=== PATIENT | female | born 1940 | race Caucasian/White ===

== ENCOUNTER 2019-03-22 21:18 | Inpatient (IN) ==
[2019-03-23 00:23] LABS: BASO# 0.01 X1000 (0.0-0.2); BASO% 0.2 % (0.0-0.8); EOS# 0.05 X1000 (0.0-0.7); EOS% 0.8 % (0.0-10.0); HEMOGLOBIN 10.9 g/dL (12.0-16.0); LYMPH# 1.62 X1000 (1.2-3.4); LYMPH% 25.9 % (20.5-51.1); MCH 33.4 PG (27-31); MCHC 34.1 g/dL (33-37); MCV 98.2 FL (81-99); MONO# 0.78 X1000 (0.11-0.59); MONO% 12.5 % (1.7-9.3); MPV 9.7 FL (7.4-10.4); NEUT% 60.6 % (42.2-75.2); PLT 164 X1000 (130-400); RBC 3.26 XMIL (4.2-5.4); RDW 19.6 % (11.5-14.5); WBC 6.26 X1000 (4.8-10.8)
[2019-03-23 00:33] LABS: INR 1.03; PROTIME 14.4 Seconds (11.0-16.0)
[2019-03-23 00:34] LABS: PTT 25.2 Seconds (22.3-41.8)
[2019-03-23 01:15] LABS: ALB/GLOB RATIO 1.7; CREATININE 1.3 mg/dL (0.5-0.9); POTASSIUM 4.4 mmol/L (3.5-5.1); TOTAL BILIRUBIN 2.08 mg/dL (0.20-1.00); TOTAL PROTEIN 6.3 g/dL (6.3-8.3)
--- NOTE | 2019-03-23 01:55 | PROVIDER DOCUMENTATION ---
This chart was entered by Aliya Castro Scribe, acting as scribe for Katiana Moya MD. HPI-Neurological Disorder - General Chief Complaint: Weakness Stated Complaint: STROKE SYM Time Seen by Provider: 03/22/19 22:16 Source: patient Allergies/Adverse Reactions: Patient Allergies Allergy/AdvReac Type Severity Reaction Status Date / Time No Known Allergies Allergy Verified 04/03/16 15:18 Home Medications: Home Medication List Medication Instructions Recorded Confirmed Last Taken Type Rhemicade Every 6 Weeks 1 dose IV ORDERED 06/16/13 06/10/15 04/04/14 History Levothyroxine [Synthroid] 125 microgm PO DAILY 11/20/13 06/10/15 1 Day Ago Hi story ~06/09/15 Allopurinol [Zyloprim] 300 mg PO DAILY 06/10/15 06/10/15 1 Day Ago History ~06/09/15 Lisinopril 5 mg PO DAILY 06/10/15 06/10/15 1 Day Ago History ~06/09/15 Metoprolol/Hydrochlorothiazide 1 each PO DAILY 06/10/15 06/10/15 1 Day Ago History [Metoprolol-Hctz 100-25 mg Tab] ~06/09/15 Clopidogrel [Plavix] 75 mg PO DAILY #30 tablet 06/12/15 Unknown Rx Dexlansoprazole [Dexilant] 60 mg PO DAILY #30 capsule 06/12/15 Unknown Rx Cyclobenzaprine [Flexeril] 10 mg PO TID #20 tablet 04/03/16 Unknown Rx Sulfamethoxazole/Trimethoprim 1 each PO BID #10 tablet 04/03/16 Unknown Rx [Bactrim Ds Tablet] Celecoxib [Celebrex] 200 mg PO DAILY #30 capsule 06/19/18 Unknown Rx Methocarbamol [Robaxin-750] 750 mg PO BID PRN #60 tablet 06/19/18 Unknown Rx Cephalexin [Keflex] 500 mg PO BID #14 cap 06/28/18 Unknown Rx Hydrocodone/APAP 5 mg/325 mg 1 ea PO Q6H PRN PRN #10 tab 06/28/18 Unknown Rx [[place]-5] - History of Present Illness-Neuro Nature of Presenting Problem: 79 yof c/o weakness in left leg and dizziness starting 1530 today. pt sts she was going to dr office and left leg "not moving like its supposed to" and "feels heavy." pt has hx of mini stroke, anemic and kidney problems. denies fever, chills and nvd. Review of Systems - Adult - REVIEW OF SYSTEMS - ADULT Constitutional: reports: no symptoms reported. denies: chills, fever Eyes: reports: no symptoms reported Ears, Nose, Mouth & Throat: reports: no symptoms reported Cardiovascular: reports: no symptoms reported Respiratory: reports: no symptoms reported Gastrointestinal: reports: no symptoms reported Genitourinary: reports: no symptoms reported Musculoskeletal: reports: see HPI, muscle weakness (left leg). denies: bone pain, back pain, neck pain Integumentary: reports: no symptoms reported Neurological: reports: see HPI, dizziness/vertigo. denies: headache/migraines, slurred speech, syncope Psychiatric: reports: no symptoms reported Endocrine: reports: no symptoms reported Hematologic/Lymphatic: reports: no symptoms reported Allergic/Immunologic: reports: no symptoms reported All Other Systems: Reviewed and Negative Past History - Adult - PAST MEDICAL HISTORY-ADULT Review of Records: reports: Old Records Reviewed, Nursing Assessment Review, Medications Reviewed, Social history reviewed & non-contributory. Major Childhood Illnesses: reports: denies history Cardiovascular: reports: HTN, other (cardiomegaly) Respiratory: reports: denies history Gastrointestinal: reports: denies history Obstetrical/Gynecological: reports: denies history Genitourinary: reports: cancer, kidney disease Musculoskeletal: reports: arthritis (psoriatic) Neurological: reports: denies history Endocrine/Immune: reports: anemia, thyroid disorder (thyroid disease) Other Conditions: reports: other cancer (kidney cancer), other (vitamin deficiency) - PRIOR SURGERIES/PROCEDURES Surgical/Procedure History: reports: cholecystectomy, hysterectomy, other (thyroidectomy) - IMMUNIZATION STATUS Childhood Immunizations: See Nurse Assessment Flu Vaccine: See Nurse Assessment - FAMILY HISTORY Family History: reviewed, not pertinent - SOCIAL HISTORY Smoking: non-smoker Substance Use: alcohol Alcohol Use Frequency: every day Number of drinks per typical drinking period:: 2 drinks Physical Exam- Neurological - Physical Exam-Neuro Initial Vital Signs Reviewed: Yes General Appearance: appears well, alert, no apparent distress Eye Exam: bilateral eye: normal inspection, PERRL, EOMI HENMT: normocephalic/atraumatic, moist mucous membranes, normal ENT inspection Head Injury: no evidence of injury Neck: non-tender, full range of motion, supple, normal inspection Respiratory: chest non-tender, lungs clear, normal breath sounds Cardiovascular: normal peripheral pulses, regular rate, rhythm Abdominal Exam: normal bowel sounds, non tender, soft Lymphatic: no adenopathy Peripheral Pulses: radial (R): 2+, radial (L): 2+ Extremity: normal range of motion, non-tender, normal inspection cps team lead Exam: normal hearing, normal speech, PERRL. negative: facial droop, facial paresthesias, facial weakness Motor/Sensory: no motor deficit, no sensory deficit, no pronator drift Neurologic: cps team lead II-XII nml as tested, grossly normal, no motor/sensory deficits Integumentary: normal color, normal turgor, warm/dry Psych/Mental Status: normal mood/affect, normal thought content, normal thought process, oriented x 3 - Glascow Coma Scale Best Eye Response: (4) open spontaneously Best Verbal Response: (5) oriented Best Motor Response: (6) obeys commands Total Glascow Score: 15 Progress - PLAN OF CARE/RESULTS Progress/Plan/Lab Results: Vital Signs - 8 hr 03/22/19 21:25 Temperature 98.4 F Pulse Rate 73 Respiratory Rate 20 Blood Pressure 185/79 O2 Sat by Pulse Oximetry 100 Laboratory Results - last 24 hr 03/23/19 03/23/19 03/23/19 00:16 00:16 00:16 WBC 6.26 RBC 3.26 L Hgb 10.9 L Hct 32.0 L MCV 98.2 MCH 33.4 H MCHC 34.1 RDW Std Deviation 19.6 H Plt Count 164 MPV 9.7 Immature Gran % (Auto) 0.0 Neut % (Auto) 60.6 Lymph % (Auto) 25.9 [place] % (Auto) 12.5 H Eos % (Auto) 0.8 Baso % (Auto) 0.2 Immature Gran # (Auto) 0.00 Neut # (Auto) 3.80 Lymph # (Auto) 1.62 [place] # (Auto) 0.78 H Eos # (Auto) 0.05 Baso # (Auto) 0.01 PT 14.4 INR 1.03 PTT (Actin FS) 25.2 Sodium 139 Potassium 4.4 Chloride 104 Carbon Dioxide 25 Anion Gap 10 BUN 24 H Creatinine 1.3 H Estimated GFR/1.73 m2 40 BUN/Creatinine Ratio 18 Glucose 115 H Calculated Osmolality 283 Calcium 10.0 Total Bilirubin 2.08 H AST 28 ALT 23 Alkaline Phosphatase 61 Creatine Kinase 23 L Troponin T Total Protein 6.3 Albumin 4.0 Globulin 2.3 Albumin/Globulin Ratio 1.7 03/23/19 00:16 WBC RBC Hgb Hct MCV MCH MCHC RDW Std Deviation Plt Count MPV Immature Gran % (Auto) Neut % (Auto) Lymph % (Auto) [place] % (Auto) Eos % (Auto) Baso % (Auto) Immature Gran # (Auto) Neut # (Auto) Lymph # (Auto) [place] # (Auto) Eos # (Auto) Baso # (Auto) PT INR PTT (Actin FS) Sodium Potassium Chloride Carbon Dioxide Anion Gap BUN Creatinine Estimated GFR/1.73 m2 BUN/Creatinine Ratio Glucose Calculated Osmolality Calcium Total Bilirubin AST ALT Alkaline Phosphatase Creatine Kinase Troponin T < 0.010 Total Protein Albumin Globulin Albumin/Globulin Ratio Orders Category Date Time Status Cardiac Monitoring DIRECTED Care 03/22/19 22:17 Active Finger Stick Blood Sugar (ED) DIRECTED Care 03/22/19 22:17 Active Oxygen Therapy- ED Nursing DIRECTED Care 03/22/19 22:17 Active Saline Loc NOW Care 03/22/19 22:[address] HEAD W/O CONTRAST [CT] Stat Exams 03/22/19 22:16 Taken cxr [CHEST-2 VIEWS] [RAD] Stat Exams 03/22/19 22:17 Taken CBC WITH ELECTRONIC DIFF [HEME] Stat Lab 03/23/19 00:16 Completed CK PROFILE [SP CHEM] Stat Lab 03/23/19 00:16 Completed COMPREHENSIVE METABOLIC PANEL [CHEM] Stat Lab 03/23/19 00:16 Completed PROTIME WITH INR [COAG] Stat Lab 03/23/19 00:16 Completed PTT [COAG] Stat Lab 03/23/19 00:16 Completed TROPONIN T Stat Lab 03/23/19 00:16 Completed Altered Mental Status Stat Oth 03/22/19 22:17 Ordered EKG [EKG] Stat Ther 03/22/19 22:17 Ordered Result Diagrams: 03/23/19 00:16 03/23/19 00:16 - EKG 1 Time of EKG reading by physician:: 21:24 EKG Read and Signed by:: Katiana Moya EKG Interpretation (*Must complete 3 of following elements*): Abnormal (borderline) Rate: 67 Rhythm: SR w/ short ID w/PAC [place]: normal QRS: normal ID Interval: shortened ST Wave: normal - CT/MRI 1 CT Study: Head (Impression: Negative for acute intracranial abnormality. Stable intracranial exam. 2. Sinusitis.) Impression: Normal - CONSULTS/PCP/HOSPITALIST Notification #1 *Consult/PCP/Hospitalist*: dr. Carlos Time Discussed: :53 Consult Disposition: Admit Departure - Departure Date of Disposition Decision: 03/23/19 Time of Disposition Decision: :53 DIAGNOSIS: Essential hypertension, TIA (transient ischemic attack), RHEA (acute kidney injury) Disposition: ADMITTED INPATIENT 09 Certified Medical Emergency: Emergent Condition: Stable Referrals and Follow-Ups: Yumkio Norman MD [Primary Care Provider] - - Critical Care Note This patient required my direct & personal management of CC.: No Attestation - Physician/ NEYMAR Attestation Patient care was provided by Advanced Practice Provider:: No The physician spent face to face time with patient:: Yes Advanced Practice Provider documentation review:: Supervising physician onsite and consulted in the evaluation and care of this patient. The physician did have a face to face encounter with the patient. - NIH Stroke Scale NIH Type: Initial Evaluation Level of Consciousness: 0-Alert LOC Questions (ask month and age): 0-Answers Both Correctly LOC Commands (ask to open & close eyes;make a fist, let go): 0-Obeys Both Correctly Best Gaze (horizontal eye movement): 0-Normal Visual (use finger movement, counting or visual threat): 0-No Visual Loss Facial Palsy (show teeth or raise eyebrows & close eyes tght: 0-Symmetrical Movement Motor Function-left arm: 0-Normal Motor Function-right arm: 0-Normal Motor Function-left le-Some Effort Against [place] Motor Function-right le-Normal Limb Ataxia([id number], or heel to chavez): 1-Present in one limb Sensory(pin prick to face,arms,trunk,legs-compare side/side): 0-No Ataxia Best Language(name item/read sentence.Ex-Down to Earth): 0-No Aphasia Dysarthria(Pt read words or say words Ex.Mama,Tip-Top,Thanks: 0-Normal Articula tion Extinction and Inattention: 0-Normal Modified [place] Score Criteria: 0-no symptoms This chart was documented by the indicated scribe, (Aliya Castro, Dalia) and accurately reflects the services I performed and decisions made by me, Katiana Moya MD, as attested by the provider's signature.
--- NOTE | 2019-03-23 06:06 | HISTORY AND PHYSICAL ---
PRIMARY CARE PHYSICIAN: Dr. Parag Norman CHIEF COMPLAINT: Left leg weakness. HISTORY OF PRESENTING ILLNESS: A 71-year-old female with a history of hypertension, hypothyroidism, psoriatic arthritis, chronic anemia and TIA who had presented to emergency department with 1-day history of having left leg weakness. The patient states that she was not able to control her leg and had felt weak. She was evaluated in the emergency department, and due to suspicion of possible TIA she will need admission for further management. At the time of my examination, patient denied any headache, fever, chills, chest pain, shortness of breath or any weight changes, but complained of left leg weakness and dizziness. PAST MEDICAL HISTORY: Includes hypertension, hypothyroidism, gout, psoriatic arthritis, chronic anemia and TIA. PAST SURGICAL HISTORY: Hysterectomy, thyroidectomy and cholecystectomy. ALLERGIES: No known drug allergies. CURRENT MEDICATIONS: Include allopurinol 300 mg p.o. daily, Celebrex 200 mg p.o. daily, Plavix 75 mg p.o. daily, Flexeril 10 mg p.o. t.i.d., Dexilant 60 mg p.o. daily, [place] 5 1 p.o. q.6 hours, levothyroxine 125 mcg every day, lisinopril 5 mg p.o. daily, Robaxin 750 mg p.o. b.i.d., metoprolol HCT 100/25 1 p.o. daily, and Remicade every 6 weeks. SOCIAL HISTORY: No history of smoking. Admits to drinking wine every night. Denies any illicit drug use. FAMILY HISTORY: No history of coronary disease. REVIEW OF SYSTEMS: Fourteen point review of system as listed in HPI. Other systems negative. PHYSICAL EXAMINATION: GENERAL: Cooperative and friendly female. She is resting more comfortably now. VITAL SIGNS: Temperature 98.4 degrees, pulse 72, respirations 20, and blood pressure 185/79. HEENT: Atraumatic, normocephalic. Extraocular movements intact. PERRLA. NECK: No masses. CHEST: Clear to auscultation. CARDIOVASCULAR: Regular rate and rhythm. ABDOMEN: Soft. Positive bowel sounds. EXTREMITIES: There is some disfigurement on her hands. There is no edema. : No bladder distention. NEUROLOGIC: She is awake, alert, and oriented x3. Strength 5/5 in all extremities. Speech is intact. : No bladder distention. SKIN: Warm. LABORATORIES AND STUDIES: WBC 6.26, hemoglobin 10.9, hematocrit 32, and platelets 164,000. Sodium 139, potassium 4.4, chloride 104, CO2 25, BUN is 24, creatinine is 1.3, and glucose is 115. CT of the head was read as negative by ER physician. ASSESSMENT: This is a 79-year-old female with a history of hypertension, TIA, hypothyroidism, psoriatic arthritis, who had presented to emergency department with 1-day history of having left leg weakness and dizziness. She was evaluated in the emergency department, and due to her presenting symptoms, she will require admission for further management. 1. TIA. We will need to rule out cerebrovascular accident. 2. Hypertension. 3. Hypothyroidism. 4. Psoriatic arthritis. PLAN: 1. We will admit patient to medical floor with telemetry. 2. Continue with stroke workup. 3. We will schedule a carotid duplex, echocardiogram, and MRI of the brain. 4. We will consult Neurology. 5. We will monitor blood pressure and allow permissive hypotension. 6. We will restart her home medications. 7. We will put patient on DVT prophylaxis and SCD's. 8. We will continue to follow and reassess, and make further recommendations based on patient's clinical course. cc: Ambrosio Carlos MD
[2019-03-23 06:30] LABS: URINE SOURCE CLEAN CATCH
--- NOTE | 2019-03-23 06:32 | Diag Imaging Result Doc PS360 ---
CHEST-2 VIEWS - 03/22/2019 INDICATION: pna COMPARISON: 06/28/2018 FINDINGS: The lungs are normally expanded and clear. Heart size and mediastinal contours are normal. No pneumothorax or pleural effusion. IMPRESSION: Negative exam. Electronically signed by Yogi Jacobs 03/23/2019 6:30 AM
[2019-03-23 06:47] LABS: BILIRUBIN URINE NEGATIVE (NEGATIVE); BLOOD URINE NEGATIVE (NEGATIVE); COLOR YELLOW; GLUCOSE URINE NEGATIVE (NEGATIVE); KETONE URINE NEGATIVE (NEGATIVE); LEUKOCYTES URINE MODERATE (NEGATIVE); NITRITE URINE NEGATIVE (NEGATIVE); PROTEIN URINE NEGATIVE (NEGATIVE); SP GRAVITY URINE 1.005; TURBIDITY URINE CLEAR (CLEAR); UR EPITHELIAL CELLS <10 /HPF (<10); URINE BACTERIA 4+ /HPF; URINE RBC <10 /HPF (<10); UROBILINOGEN URINE NORMAL (NORMAL)
--- NOTE | 2019-03-23 07:18 | Diag Imaging Result Doc PS360 ---
EXAM: CT HEAD W/O CONTRAST INDICATION: weakness TECHNIQUE: This exam was performed using automated exposure control, adjustment of mA or kV according to patient size, and/or use of iterative reconstruction technique. COMPARISON: 06/28/2018 FINDINGS: There is suggestion of minimal white matter microangiopathy, stable. There is no definite acute infarct given the limited sensitivity of CT versus MRI. There is no discrete intracranial mass, mass effect, or intracranial hemorrhage. The surrounding soft tissues and bony structures are essentially unremarkable. IMPRESSION: Stable minimal chronic white matter changes. No evidence of acute intracranial pathology. Electronically signed by Justino Castro 03/23/2019 7:15 AM
--- NOTE | 2019-03-23 07:28 | EKG Report ---
Test Performed on : 03/22/2019 9:24:11 PM Test Reason : weakness Blood Pressure : / mmHG Vent. Rate : 067 BPM Atrial Rate : 067 BPM P-R Int : 110 ms QRS Dur : 080 ms QT Int : 408 ms P-R-T Axes : 036 -01 062 degrees QTc Int : 431 ms Sinus rhythm. with short CO with premature atrial complexes. Low voltage QRS Borderline ECG When compared with ECG of 10-JUN-2015 11:07, premature atrial complexes. are now present Unconfirmed Result
[2019-03-23] MEDS: ASPIRIN PO SCH ×2 (08:18→09:54)
[2019-03-23] MEDS ORDERED: METHOTREXATE PO SCH (09:00)
[2019-03-23] MEDS: ZYLOPRIM PO SCH (09:54)
[2019-03-23] MEDS: FOLIC ACID PO SCH (09:55)
[2019-03-23] MEDS: VITAMIN D PO SCH ×2 (10:08)
--- NOTE | 2019-03-23 10:08 | Diag Imaging Result Doc PS360 ---
MRI BRAIN W/WO CONTRAST - 03/23/2019 INDICATION: TIA COMPARISON: Head CT 03/22/2019 FINDINGS: There is no area of restricted diffusion. There is no abnormal contrast enhancement. There is a small focal area of encephalomalacia at the right cerebellar hemisphere that is more extensive than the MRI from 06/21/2015. Otherwise, no intracranial mass or hemorrhage. The ventricles and sulci are otherwise normal. There is some mild patchy cerebral white matter hyperintensity stable from prior. This is nonspecific but most compatible with chronic microvascular disease. IMPRESSION: Chronic microvascular disease of the cerebral hemispheres. Small, old infarction in the right cerebellar hemisphere. No acute process. Electronically signed by Yogi Jacobs 03/23/2019 10:06 AM
--- NOTE | 2019-03-23 13:17 | PROGRESS NOTE ---
DATE: 03/23/2019 SUBJECTIVE: Mrs. Mosquera was admitted by Dr. Carlos with a suspected TIA. She continues with persistent left lower extremity issues. When attempting to ambulate, she drags the left leg. She requires assistance getting in and out of bed. Her initial CT scan of the brain demonstrated chronic white matter changes. An ultrasound of the carotids demonstrated no hemodynamically significant lesions. A followup MRI was negative. She remains in normal sinus rhythm. OBJECTIVE: Temperature 98.2 degrees, pulse 64, respiratory rate 16, and BP 154/64. CV: Regular rate and rhythm. Lungs: Clear. Abdomen: Soft, nontender with active bowel sounds. Neurologic: She is alert and oriented to name, place, and time. Cranial nerves 2-12 intact grossly. She has normal tone and strength in the upper extremities and right lower extremity. Strength is 4/5 in the left lower extremity. She has an antalgic gait. 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 I really believe that she has most likely had an embolic CVA. We will continue telemetry to rule out arrhythmias. A carotid ultrasound demonstrated no hemodynamically significant lesions. An echo is pending. She is requiring assistance with transfers. When I assisted with ambulation today, her gait was unstable and ataxic. I do believe that she would benefit from physical therapy. Her difficulties with ambulation are going to require physical therapy. She is certainly not independent enough at this time to safely discharge her home. I believe that inpatient status is indicated as I anticipate she will be in the hospital for at least 2 midnights. I am going to begin Plavix 75 mg daily. We talked about short-term rehab. Because of responsibilities at home, she cannot be away from the house as she is her 's primary caregiver. We will arrange for home health with physical therapy. I will write a prescription for a walker with wheels and a seat. cc: Cat Norman MD
[2019-03-23] MEDS: PLAVIX PO SCH (13:40)
--- NOTE | 2019-03-23 16:04 | CONSULTATION ---
DATE OF CONSULTATION: 03/23/2019 NEUROLOGY CONSULTATION: Ms. Mosquera is 79 years old and she had relatively abrupt onset of dizziness and gait difficulty yesterday. She reports riding in a car with her to his doctor visit. She had a little bit of headache in the car ride. As she got out of the car, she noticed dizziness and unsteadiness. When she got to the elevator, her sense of imbalance was increased, and she reports that has not occurred before. She got to the doctor's office and sat in the waiting room while was taken back for his visit. She attempted to stand but had a sense she could not stand up. Later, she was able to stand unassisted, but noted she was dragging her left leg more than the right. She uses a rolling walker at all times in recent years because of degenerative joint problems in the legs. She believes she was more dependent on the walker during this time yesterday. She did not notice vision disturbance. Headache persisted and eventually improved. There was no trouble with chewing or swallowing. Speech was not affected. Memory was clear, and there was no altered awareness or altered consciousness. She did not notice focal weakness or clumsiness in the arms. She was admitted and watched overnight. She believes she is a little bit better today. She reports she has not had an episode like this before. She is not aware of any definite previous stroke. Past history is remarkable for hypertension, hypothyroidism, psoriatic arthritis treated with methotrexate. Vital signs recorded here show she has been afebrile. Heart rate has ranged 60s to 70s. Initial systolic blood pressure 180s, came down to 140s to 150s range. Lab showed BUN 24, creatinine 1.3, both slightly above her baseline. Blood sugar was 115. Chemistry was otherwise unremarkable. Noncontrast CT showed usual white matter changes. Brain MRI today done with and without contrast shows chronic white matter changes bilaterally with area of encephalomalacia in the right cerebellar hemisphere, reported to be more extensive than noted on 06/21/2015 MRI. There was no restricted diffusion. On exam, Ms. Mosquera is awake, alert, attentive, appropriate, oriented, cheerful. Speech is not dysarthric. Language function is intact on bedside testing. Recent and remote memory are good. Head and neck are unremarkable. Visual alvarez are full, tested by confrontational finger counting. Extraocular movements are full. Facial motility is little bit diminished bilaterally, but symmetric. Gag is intact. Tongue is midline. She can hear. Shoulder shrug is good bilaterally. Strength is normal in the arms and legs. She did well on [id number] testing bilaterally. She did well on [id number] testing except as limited by the joint problems. There was no evidence of cerebellar deficit. Proprioception is good in the fingers and at the left great toe MTP joint. At the right great toe MTP joint, her responses were a little bit more equivocal, but still all correct. She reports good pinprick appreciation over the limbs. Reflexes are trace at the knees and 1+ symmetrically at the wrists. I did not test her gait. IMPRESSION: Reported abrupt onset of dizziness with unsteady gait and headache, possible focal weakness or clumsiness involving the left leg, incomplete recovery over the last 24 hours. She has risk factors for cerebrovascular ischemic problems, and that may be the most likely explanation, although MRI does not show definite acute infarction. Reported onset with dizziness raises possibility that she had vertigo due to labyrinthopathy and she may not have had an acute central nervous system event. I encouraged her to be attentive to her physical therapy here, to make sure she takes her medicines correctly after discharge, to stay well hydrated, to sit down if she is lightheaded, to be careful with gait and activities. If vertigo is apparent and recurrent, meclizine and ENT evaluation could be considered. I do not have any suggestion for new neurologic workup beyond what she has had completed this admission. I would continue daily aspirin, clopidogrel. Would consider resuming antihypertensive medicines cautiously over the next several days. We do not have lipid profile here, and if lipids have been checked recently as outpatient and are unremarkable, I do not think she has to have a statin at this point. Thanks for asking Neurology to see Ms. Mosquera. cc: MD Cat Schmitt III, MD MTDD
[2019-03-24] MEDS ORDERED: SYNTHROID PO SCH (07:00)
[2019-03-24] MEDS ORDERED: NS 500 ML IV ONE (07:18)
--- NOTE | 2019-03-24 07:45 | PROGRESS NOTE ---
DATE: 03/24/2019 SUBJECTIVE: Ms. Mosquera has had a suspected embolic CVA. She continues with persistent mild left leg weakness and left footdrop. She denies any low back pain or radiation of pain extending down the left leg. She is making slow progress with physical therapy. She has had no further TIA type symptoms. OBJECTIVE: A CT scan of the brain as well as an MRI of the brain demonstrated chronic white matter changes. Temperature 98.5 degrees, pulse 82, respirations 14, BP 98/54. CV: Regular rate and rhythm. Lungs: Clear. Abdomen: Soft, nontender, with active bowel sounds. Neurologic: She alert and oriented to name, place, and time. Cranial nerves 2-12 intact grossly. She has mild left leg weakness with a left footdrop. ASSESSMENT AND PLAN: 1. Suspected embolic cerebrovascular accident. We will continue aspirin and Plavix. A lipid profile is pending. We will continue physical therapy. If she does well with physical therapy, I hope to be able to discharge her home with home health. 2. Hypotension. I will continue to hold Ziac and we will give her a bolus of normal saline. cc: Cat Norman MD
[2019-03-24] MEDS: PLAVIX PO SCH (08:47)
[2019-03-24] MEDS: FOLIC ACID PO SCH (08:47)
[2019-03-24] MEDS: ASPIRIN PO SCH (08:47)
[2019-03-24] MEDS: VITAMIN D PO SCH (08:47)
[2019-03-24] MEDS: ZYLOPRIM PO SCH (08:47)
--- NOTE | 2019-03-24 09:14 | PROGRESS NOTE ---
DATE: 03/24/2019 SUBJECTIVE: Ms. Mosquera reports no dizziness now. She does not have headache. She has not noticed focal weakness or clumsiness. She has been out of bed only briefly, mostly to the bedside commode. I encouraged her to be attentive and aggressive with her physical therapy. I agree with Dr. Norman' impression and plans. Thanks for asking Neurology to see Ms. Mosquera. cc: MD Cat Schmitt III, MD MTDD
[2019-03-24 09:26] LABS: HEMATOCRIT 29.5 % (37.0-47.0); HEMOGLOBIN 9.8 g/dL (12.0-16.0); MCH 32.8 PG (27-31); MCHC 33.2 g/dL (33-37); MCV 98.7 FL (81-99); MPV 9.5 FL (7.4-10.4); RBC 2.99 XMIL (4.2-5.4); RDW 18.6 % (11.5-14.5); WBC 4.85 X1000 (4.8-10.8)
[2019-03-24 10:06] LABS: CALCIUM 9.3 mg/dL (8.8-10.2); CREATININE 1.2 mg/dL (0.5-0.9); POTASSIUM 3.8 mmol/L (3.5-5.1)
[2019-03-24] MEDS ORDERED: LEVAQUIN PO SCH (12:30)
[2019-03-24 15:23] VITALS: BP 132/63
--- NOTE | 2019-03-25 07:24 | DISCHARGE SUMMARY ---
ADMISSION DATE: 03/23/2019 DISCHARGE DATE: 03/24/2019 DISCHARGE DIAGNOSES: 1. 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 2. Urinary tract infection. 3. Essential hypertension. 4. Primary hypothyroidism. 5. Mixed hyperlipidemia. 6. Psoriatic arthritis. DISCHARGE INSTRUCTIONS: 1. Return to clinic in 1 week to see me, Dr. Parag Norman, in anticipation of a transition of care visit. 2. Activity as tolerated. 3. Healthy heart diet. MEDICATIONS: 1. Allopurinol 300 mg daily. 2. Vitamin D 1000 units daily. 3. Clopidogrel 75 mg daily. 4. Folic acid 1 mg daily. 5. Levaquin 500 mg daily for 7 days. 6. Levothyroxine 125 mcg daily. 7. Methotrexate 2.5 mg 5 pills weekly. 8. Remicade injections every 5 weeks. PHYSICAL EXAMINATION: General: This is a well-developed, well-nourished, pleasant, 79-year-old lady in no apparent distress. Vital signs: She is afebrile, pulse 71, respiratory rate 16, blood pressure 132/63. Cardiovascular: Regular rate and rhythm. Lungs: Clear. Abdomen: Soft, nontender with active bowel sounds. Neurologic: She is alert and oriented to name, place, and time. Cranial nerves 2 through 12 intact grossly. She has normal tone and strength in the upper extremities. Strength is 4/5 in the left lower leg. There is a left footdrop. Her gait is antalgic. HISTORY AND HOSPITAL COURSE: Ms. Marina Mosquera was admitted to [facility] for evaluation of sudden onset of left leg weakness. She had left leg weakness and a footdrop. She denied any low back pain or radiation of pain or numbness or tingling extending down the left leg. Her initial CT scan demonstrated chronic white matter changes. A followup MRI demonstrated chronic white matter changes. A carotid ultrasound demonstrated no evidence of hemodynamically significant lesions. She remained in normal sinus rhythm throughout her hospitalization. Her blood pressure was low initially and we held the Ziac so as to avoid increasing the watershed area of the stroke. Physical Therapy was consulted to see the patient. She made slow progress with Physical Therapy. She was able to walk approximately 250 feet today with residual left leg drag and left footdrop. Physical Therapy recommended that she would benefit from a walker. We have given her prescription for a cardiac walker. We will make arrangements for her to have home health, with a [employer] Manager evaluation, nursing staff to monitor vitals and efficacy of medicines, as well as a Physical Therapy evaluation. We did draw a fasting lipid profile which demonstrated a total cholesterol of 106, triglycerides 73, HDL 50 and LDL 53. Given the lipid profile, I did not believe that statins were indicated. She does have a longstanding history of essential hypertension. Her blood pressure was initially low. We held the Ziac. We rehydrated her with fluids. Once her blood pressure normalized, we resumed the Ziac. Having reached maximum hospital benefit, the patient was discharged in stable condition. cc: Cat Norman MD
--- NOTE | 2019-03-26 17:21 | Carotid Study ---
DATE: 03/23/2019 PROCEDURE: Carotid duplex study. REFERRING PHYSICIAN: Dr. Carlos. INTERPRETING PHYSICIAN: Dr. Mathis. TECH: [place]. INDICATIONS: TIA. Left leg weakness. OBSERVED DATA RIGHT LEFT Brachial Blood Pressure Carotid Pulse Bruits: Carotid/Sub DIAGRAM OF ULTRASOUND IMAGING R L RIGHT INT EXT INT EXT LEFT Anoop (cm/s) Anoop (cm/s) Subclavian 64/0 Subclavian 92/0 CCA Proximal 52/12 CCA Proximal 91/11 CCA Distal 57/10 CCA Distal 68/12 Bulb 61/12 Bulb 76/13 ICA Proximal 44/12 ICA Proximal 63/10 ICA Mid 64/16 ICA Mid 61/16 ICA Distal 88/25 ICA Distal 84/21 ECA 60/6 ECA 145/11 Vertebral 102/15 Vertebral 73/0 ICA/CCA Ratio 1.5 ICA/CCA Ratio 0.9 % Stenosis 0-39% % Stenosis 0-39% FINDINGS: There is a mild amount of plaque in both carotid bulbs that does not produce turbulent flow or significant elevated velocities. There is retrograde left vertebral flow. PHYSICIAN INTERPRETATION: Mild plaque disease as described above without significant stenosis. There is left retrograde vertebral flow. This is stable from the prior study on 06/10/2015. cc: MD Ambrosio Chavarria MD M. Neel Roberts, MD MTDD
[2019-03-28] MEDS ORDERED: METHOTREXATE PO SCH (10:00)
== END 2019-03-24 18:09 | disposition home health service (06) | DRG 65 ==
LOC: ED 21:18 → SUATTDRO 03-23 02:25 → 4N 03-23 02:25
PROVIDERS: ADMIT Internal Medicine; ATTEND Internal Medicine